=== PATIENT | female | born 1950 | race Two or more races ===

== ENCOUNTER → 2016-07-30 | Outpatient (CLI) | payer MEDICARE ==
[~2016-07-30] MED LIST: AMLO5TAB2 PO; ATOR20TA9 PO; HYDR25TA6 PO; LISI-170 PO
== END | disposition home or self-care (01) ==
LOC: CARD 08:45
PROVIDERS: ATTEND Physician Assistant Medical
DX: R07.9 Chest pain, unspecified (principal); R06.02 Shortness of breath
CPT/HCPCS: 93017